=== PATIENT | male | born 1980 | race Caucasian/White ===

== ENCOUNTER 2022-09-10 10:54 | Emergency (ER) | payer MEDICARE ==
[~2022-09-10] VITALS: Ht 188 cm; Wt 79.6 kg
[~2022-09-10 10:54] MED LIST: KEPPRA500 MG OR; TRILEPTAL300 MG OR
[2022-09-10 15:00] VITALS: BP 105/69
[2022-09-10 15:30] VITALS: BP 109/70
[2022-09-10] MEDS ORDERED: CIPROFLOXACN0.3 % OS (16:55)
[2022-09-10 17:37] VITALS: BP 109/70
== END 2022-09-10 17:39 | disposition home or self-care (01) ==
LOC: ED 10:54
PROC: 08C Eye, Extirpation (ICD-10-PCS; principal; 2022-09-10)
DX: T15.02XA Foreign body in cornea, left eye, initial encounter (principal); G40.909 Epilepsy, unspecified, not intractable, without status epilepticus; F17.210 Nicotine dependence, cigarettes, uncomplicated; X58.XXXA Exposure to other specified factors, initial encounter; Y93.89 Activity, other specified; Y92.008 Other place in unspecified non-institutional (private) residence as the place of occurrence of the external cause; Z98.2 Presence of cerebrospinal fluid drainage device